=== PATIENT | male | born 1955 | race Caucasian/White ===

== ENCOUNTER 2019-09-02 11:55 | Inpatient (IN) | payer OTHER ==
[2019-09-02 12:47] LABS: #Eosinphils 0.2 thou/uL (0.0-0.7); #Lymphocytes 0.9 thou/uL (1.20-3.40); #Monocytes 0.6 thou/uL (0.11-0.59); #Neutrophils 3.6 thou/uL (1.40-6.50); %Basophils 0.3 % (0.0-1.0); %Eosinophils 3.1 % (0.0-10.0); %Lymphocytes 17.2 % (21.0-51.0); %Monocytes 11.1 % (0.0-10.0); %Neutrophils 68.4 % (42.0-75.0); Hemoglobin 13.2 g/dL (14.0-18.0); Mean Corpuscular HGB CONC 33.7 g/dL (32.0-36.0); Mean Corpuscular Hemoglobin 31.9 pg (27.0-31.0); Mean Corpuscular Volume 94.7 fL (78.0-98.0); Mean Platelet Volume 7.5 fL (7.4-10.4); Platelet Count 217 thou/uL (130-400); RBC Distribution Width 13.1 % (11.5-14.5); Red Blood Cell (RBC) Count 4.15 mill/uL (4.70-6.10); White Blood Cell (WBC) Count 5.3 thou/uL (4.8-10.8)
[2019-09-02] MEDS ORDERED: Albuterol 200 PUFF (6.7GM INHALER) ONE (12:59)
[2019-09-02] MEDS ORDERED: Magnesium 2 GM/50 ML BAG (IN WATER) ONE (13:01)
[2019-09-02] MEDS ORDERED: methylPREDNISolone Sod Succ/PF 125 MG/2 ML VIAL ONE (13:01)
[2019-09-02 13:26] LABS: ALT (SGPT) 17 U/L (8-55); AST (SGOT) 27 U/L (5-34); Albumin 3.6 g/dL (3.4-4.8); Alkaline Phosphatase 76 U/L (40-110); Anion Gap 11 mmol/L (10-20); BUN (Urea Nitrogen) 13 mg/dL (8.4-25.7); Bilirubin, Total 0.6 mg/dL (0.2-1.2); Calc. Creatinine Clearance 0 mL/min (70-130); Calcium 9.1 mg/dL (7.8-10.44); Carbon Dioxide 27 mmol/L (23-31); Chloride 99 mmol/L (98-107); Estimated GFR-MDRD Greater than 90; Globulin 3.6 g/dL (2.4-3.5); Glucose 193 mg/dL (80-115); Potassium 4.3 mmol/L (3.5-5.1); Protein, Total 7.2 g/dL (5.8-8.1); Sodium 133 mmol/L (136-145)
[2019-09-02 13:43] LABS: CKMB 5.6 ng/mL (0-6.6)
[2019-09-02] MEDS ORDERED: Nitroglycerin 2% Ointment 1 INCH/1 GM Packet ONE (13:47)
[2019-09-02] MEDS ORDERED: Aspirin Chewable 81 MG TAB ONE ×2 (13:47→13:50)
--- NOTE | 2019-09-02 14:25 | RAD ---
PORTABLE CHEST ONE VIEW: 09/02/19 at 12:20 p.m. HISTORY: Dyspnea. FINDINGS: Comparison is made with exam of 12/26/18. The heart size is normal. Chronic changes are again seen. T he lungs are well expanded without lobar consolidation, pneumothoraces or pleural effusions. Old left sided rib fractures are again seen. IMPRESSION: No acute process. POS: [facility]
[2019-09-02 17:10] LABS: Troponin I 0.181 ng/mL (< 0.028)
[2019-09-02] MEDS ORDERED: Senokot S 8.6-50 MG TAB PO PRN (19:22)
[2019-09-02] MEDS ORDERED: Ondansetron ODT 4 MG TAB PO PRN (19:22)
[2019-09-02] MEDS ORDERED: Acetaminophen 325 MG TAB PO PRN (19:22)
[2019-09-02] MEDS ORDERED: Nitroglycerin 0.4 MG TAB (25 Tab Bottle) PO PRN (19:22)
[2019-09-02] MEDS ORDERED: Ondansetron PF 4 MG/2 ML Vial IVP PRN (19:22)
[2019-09-02] MEDS ORDERED: Sodium Chloride 0.9% 1,000 ML IV SCH (19:30)
[2019-09-02 19:45] VITALS: BMI 21.2
[2019-09-02] MEDS ORDERED: Azithromycin 250 MG TAB PO SCH (19:45)
[2019-09-02] MEDS ORDERED: Albuterol Sulfate 2.5 mg/3 ml Neb EZPAP SCH ×2 (20:00)
[2019-09-02 20:08] LABS: Troponin I 0.145 ng/mL (< 0.028)
[2019-09-02] MEDS ORDERED: Albuterol 200 PUFF (6.7GM INHALER) INH PRN (20:59)
[2019-09-02] MEDS ORDERED: Metoprolol Tartrate 25 MG TAB PO SCH (21:00)
[2019-09-02] MEDS ORDERED: Albuterol 200 PUFF (6.7GM INHALER) INH SCH (21:30)
[2019-09-02] MEDS: Ipratropium Oral Inhaler INH SCH (21:31)
[2019-09-02] MEDS: Calcium Carbonate + Vit D 250 MG TAB PO SCH (21:34)
[2019-09-02] MEDS: Sodium Chloride 0.9% 1,000 ML IV SCH (21:35)
--- NOTE | 2019-09-02 22:33 | HP ---
HISTORY OF PRESENT ILLNESS: Mr. Hough is a 63-year-old male currently incarcerated with a medical history of COPD, type 2 diabetes, hyperlipidemia, and hypertension, who presented with shortness of breath. The patient endorsed having shortness of breath since the morning, worsened by exertion. He has had such shortness of breath for the past 20 years during episodes of COPD exacerbation, so presented to the ED. On encounter, lying comfortably in bed and has no complaints. Endorses feeling and breathing better since arriving at the ED. Denies fatigue, weight loss, chest pressure, jaw pain or shoulder pain, pleuritic pain, increased cough frequency, increased sputum production, syncope, presyncope, palpitations, abdominal pain, diarrhea, black stools, blood in the stool, dysuria, urinary frequency, sick contacts, and COVID positive [facility] ED COURSE: In the ED, the patient was found to be wheezing and oxygen saturation was in the high 80s. He was started on nasal cannula respiratory treatments and was given methylprednisolone once. He improved promptly and was admitted to the floor for further management. REVIEW OF SYSTEMS: Full review of system was carried out and was negative with the exception of that mentioned in the HPI. PAST MEDICAL HISTORY: Shows COPD, hypertension, and type 2 diabetes. PAST SURGICAL HISTORY: Left hip replacement and partial liver resection. SOCIAL HISTORY: Used to smoke tobacco. Used to drink alcohol, both heavy smoker and drinker in the past, quit about 10 to 15 years ago. Used to do recreational drugs, but never injected in so. FAMILY HISTORY: Significant for hypertension and diabetes. MEDICATIONS: Reconciled in EMR. ALLERGIES: NO KNOWN DRUG ALLERGIES. PHYSICAL EXAMINATION: VITAL SIGNS: Blood pressure 146/72, temperature 97, pulse 102, respiratory rate 18, and oxygen saturation 97% on room air. GENERAL APPEARANCE: Lying comfortably in bed, alert and cooperative. HEENT: No preauricular, postauricular, posterior or anterior neck or submandibular lymphadenopathy. Normocephalic and atraumatic. HEART: Regular rhythm, tachycardic. No rubs or murmurs. LUNGS: Diffuse expiratory wheezing, but good breath sounds. ABDOMEN: Nondistended, nontender. Normal bowel sounds. EXTREMITIES: No edema. PSYCHIATRIC: Proper mood and affect. Alert and oriented x3. DIAGNOSTIC STUDIES: Labs and imaging were reviewed. Of note, the patient was alkalotic. His hyponatremia most likely a component of contraction alkalosis. The patient had a troponin of 0.25 that went down to 0.15 with a normal CK-MB suggesting resolving cardiac ischemia and a BNP of 200. Imaging showed hyperinflated lungs with flattening of the diaphragm. ASSESSMENT AND PLAN: 1. Chronic obstructive pulmonary disease exacerbation: a. The patient presents with increased shortness of breath and wheezing on exam. b. Responded promptly to steroids, respiratory treatments, and supplemental oxygen. c. On reviewing inhalation technique, the patient exhibited suboptimal technique. PLAN 1. Start prednisone 40 mg p.o. daily; azithromycin 500 mg, then 250 mg p.o. daily. 2. Albuterol and ipratropium inhalation q.6 hours scheduled, tiotropium scheduled. 3. Dyspnea on exertion: a. Though the patient's dyspnea on exertion may be related to chronic obstructive pulmonary disease and suboptimal chronic obstructive pulmonary disease management and chronic obstructive pulmonary disease exacerbation, the patient does endorse 20 years of recurrent dyspnea on exertion. The patient also presented with troponinemia and normal CK-MB suggestive of resolving cardiac ischemia. b. Cardiac ischemia may have been due to demand ischemia in the context of hypoxemia. However, the patient has pretest coronary artery disease consortium score of intermediate risk for coronary artery disease. Therefore, we will obtain a stress test. 4. Type 2 diabetes. a. The patient is managed with low-dose insulin injections as well as metformin at home. b. We will start metformin and sliding scale. 5. Hypertension. a. Restart home regimen. 6. Disposition prophylaxis. a. The patient is full code. The patient has no surrogate decision maker. 7. Gastrointestinal prophylaxis, no indication. 8. Deep venous thrombosis prophylaxis, Lovenox subcutaneously. Job ID: [id number]
[2019-09-03 04:49] LABS: #Lymphocytes 0.7 thou/uL (1.20-3.40); #Monocytes 0.2 thou/uL (0.11-0.59); #Neutrophils 3.4 thou/uL (1.40-6.50); %Lymphocytes 16.2 % (21.0-51.0); %Monocytes 3.6 % (0.0-10.0); %Neutrophils 80.2 % (42.0-75.0); Hemoglobin 13.6 g/dL (14.0-18.0); Mean Corpuscular HGB CONC 33.5 g/dL (32.0-36.0); Mean Corpuscular Hemoglobin 31.6 pg (27.0-31.0); Mean Corpuscular Volume 94.3 fL (78.0-98.0); Mean Platelet Volume 7.2 fL (7.4-10.4); Platelet Count 269 thou/uL (130-400); RBC Distribution Width 13.1 % (11.5-14.5); Red Blood Cell (RBC) Count 4.29 mill/uL (4.70-6.10); White Blood Cell (WBC) Count 4.2 thou/uL (4.8-10.8)
[2019-09-03 05:13] LABS: Anion Gap 11 mmol/L (10-20); BUN (Urea Nitrogen) 17 mg/dL (8.4-25.7); Calc. Creatinine Clearance 76 mL/min (70-130); Carbon Dioxide 27 mmol/L (23-31); Chloride 101 mmol/L (98-107); Estimated GFR-MDRD Greater than 90; Glucose 231 mg/dL (80-115); Potassium 4.4 mmol/L (3.5-5.1); Sodium 135 mmol/L (136-145)
[2019-09-03] MEDS: Sodium Chloride 0.9% 1,000 ML IV SCH ×2 (07:52→16:36)
[2019-09-03] MEDS: Ipratropium Oral Inhaler INH SCH ×4 (07:52→21:57)
[2019-09-03] MEDS: Albuterol 200 PUFF (6.7GM INHALER) INH SCH ×4 (07:53→21:56)
[2019-09-03] MEDS: Azithromycin 250 MG TAB PO SCH (07:54)
[2019-09-03] MEDS: Atorvastatin Calcium 10 MG TAB PO SCH (07:54)
[2019-09-03] MEDS: predniSONE 20 MG TAB PO SCH (07:54)
[2019-09-03] MEDS: Enoxaparin Sodium 40 MG/0.4 ML SYRINGE SC SCH (07:54)
[2019-09-03] MEDS: metFORMIN 500 MG TAB PO SCH ×2 (07:54→16:37)
[2019-09-03] MEDS: Ferrous Sulfate 325 MG TAB PO SCH (07:54)
[2019-09-03] MEDS: Lisinopril 10 MG TAB PO SCH (07:55)
[2019-09-03] MEDS: Calcium Carbonate + Vit D 250 MG TAB PO SCH ×3 (07:55→20:08)
[2019-09-03] MEDS: Venlafaxine HCl XR 75 MG CAP PO SCH (07:58)
[2019-09-03] MEDS ORDERED: Enoxaparin Sodium 40 MG/0.4 ML SYRINGE SC SCH (09:00)
[2019-09-03] MEDS ORDERED: Aspirin 81 mg Enteric Coated Tablet PO SCH (09:00)
[2019-09-03] MEDS ORDERED: Non-Formulary Item 1 EACH (Tiotropium Bromide [Spiriva] 18 MCG) IH SCH (09:00)
[2019-09-03 13:18] LABS: SARS-CoV-2 MS2 Positive; SARS-CoV-2 N Gene Negative; SARS-CoV-2 S Gene Negative; SARS-CoV-2 orf1ab Negative
[2019-09-03] MEDS ORDERED: Dextrose 50% Abboject 50 ML SYRINGE SLOW IVP PRN (16:47)
[2019-09-03] MEDS ORDERED: Dextrose 5% in Water 1,000 ML IV PRN (16:47)
--- NOTE | 2019-09-03 17:00 | PDOC.HOSPP ---
- Subjective Encounter Date: 09/03/19 Encounter Time: 16:00 Subjective: Pt seen for followup re:COPD exacerbation. Feels better. - Objective Vital Signs & Weight: Vital Signs (12 hours) Temp Pulse Resp BP Pulse Ox 09/03/19 16:41 98 F 95 18 152/79 H 98 09/03/19 12:26 98.4 F 97 16 153/73 H 99 09/03/19 08:08 98.2 F 92 16 146/70 H 98 Weight Weight 128 lb I&O: 09/02/19 09/03/19 09/04/19 06:59 06:59 06:59 Intake Total 1169 1297 Output Total 2 Balance 1167 1297 Result Diagrams: 09/03/19 04:37 09/03/19 04:37 Additional Labs: Accuchecks 09/03/19 09/02/19 12:30 21:47 POC Glucose 139 H 144 H Labs and MARs reviewed by me EKG Reviewed by me: Yes (Tele: NSR) Hospitalist ROS - Review of Systems Respiratory: reports: SOB with excertion. denies: cough, dry, shortness of breath, hemoptysis, pleuritic pain, sputum, wheezing Cardiovascular: denies: chest pain, palpitations, orthopnea, paroxysmal noc. dyspnea, edema, light headedness - Medication Medications: Active Medications Generic Name Dose Route Start Last Admin Trade Name Freq PRN Reason Stop Dose Admin Albuterol Sulfate 2 puff 09/03/19 09:00 09/03/19 14:36 Proventil Hfa INH 2 puff QID BIB[facility]NA Administration Atorvastatin Calcium 10 mg 09/03/19 09:00 09/03/19 07:54 Lipitor PO 10 mg DAILY BIB[facility]NA Administration Azithromycin 250 mg 09/03/19 09:00 09/03/19 07:54 Zithromax PO 09/06/19 09:01 250 mg DAILY [facility]NA Administration Calcium/Vitamin D 250 mg 09/02/19 21:00 09/03/19 14:35 Oscal + Vit D PO 250 mg TID BIBIANA Administration Enoxaparin Sodium 40 mg 09/03/19 09:00 09/03/19 07:54 Lovenox SC 40 mg 0900 BIB[facility]NA Administration Ferrous Sulfate 325 mg 09/03/19 09:00 09/03/19 07:54 Feosol PO 325 mg DAILY BIB[facility]NA Administration Sodium Chloride 1,000 mls @ 100 mls/hr 09/02/19 19:45 09/03/19 16:36 Normal Saline 0.9% IV 1,000 mls .Q10H B[facility]NA Administration Ipratropium [place] 1 puff 09/02/19 21:00 09/03/19 14:36 Atrovent Hfa INH 1 puff QID [facility]IB[facility]NA Administration Lisinopril 10 mg 09/03/19 09:00 09/03/19 07:55 Zestril PO 10 mg DAILY B[facility]NA Administration Metformin HCl 1,000 mg 09/03/19 08:00 09/03/19 16:37 Glucophage PO 1,000 mg BID-WM BIB[place]NA Administration Pantoprazole Sodium 40 mg 09/03/19 09:00 09/03/19 07:55 Protonix PO 40 mg DAILY BIB[facility]NA Administration Prednisone 40 mg 09/03/19 09:00 09/03/19 07:54 Prednisone PO 40 mg DAILY BIB[facility]NA Administration Sodium Chloride 10 ml 09/02/19 21:00 09/03/19 07:55 Flush - Normal Saline IVF 10 ml Q12HR [facility]IB[facility]NA Administration Venlafaxine HCl 75 mg 09/03/19 09:00 09/03/19 07:58 Effexor Xr PO 75 mg DAILY BIB[facility]NA Administration - Exam General Appearance: awake alert Eye: anicteric sclera ENT: moist mucosa Neck: supple Heart: RRR Respiratory: CTAB, no wheezes Gastrointestinal: soft, non-tender Extremities: no edema Psychiatric: normal affect, normal behavior Hosp A/P (1) COPD exacerbation Code(s): J44.1 - CHRONIC OBSTRUCTIVE PULMONARY DISEASE W (ACUTE) EXACERBATION Status: Acute (2) Elevated troponin Code(s): R79.89 - OTHER SPECIFIED ABNORMAL FINDINGS OF BLOOD CHEMISTRY Status : Acute (3) DM2 (diabetes mellitus, type 2) Status: Chronic (4) HTN (hypertension) Code(s): I10 - ESSENTIAL (PRIMARY) HYPERTENSION Status: Chronic - Plan COVID 19 ruled out. Pt clinically improved with oxygen steroids and bronchodilators. Await stress test. Start insulin sliding scale. Monitor vital signs and titrate antihypertensives as needed.
[2019-09-03] MEDS: HumaLOG 300 UNITS/3 ML VIAL SC PRN (17:01)
[2019-09-04] MEDS: Sodium Chloride 0.9% 1,000 ML IV SCH ×3 (03:19→17:37)
[2019-09-04] MEDS: Albuterol 200 PUFF (6.7GM INHALER) INH SCH ×4 (06:52→17:44)
[2019-09-04] MEDS: Ipratropium Oral Inhaler INH SCH ×4 (06:53→17:45)
[2019-09-04] MEDS ORDERED: Regadenoson 0.4 MG/5 ML SYRINGE ONE (09:57)
[2019-09-04] MEDS: Azithromycin 250 MG TAB PO SCH (12:14)
[2019-09-04] MEDS: Calcium Carbonate + Vit D 250 MG TAB PO SCH ×3 (12:14→20:21)
[2019-09-04] MEDS: Ferrous Sulfate 325 MG TAB PO SCH (12:14)
[2019-09-04] MEDS: Venlafaxine HCl XR 75 MG CAP PO SCH (12:15)
[2019-09-04] MEDS: Atorvastatin Calcium 10 MG TAB PO SCH (12:15)
[2019-09-04] MEDS: Lisinopril 10 MG TAB PO SCH (12:15)
[2019-09-04] MEDS: Enoxaparin Sodium 40 MG/0.4 ML SYRINGE SC SCH (12:15)
[2019-09-04] MEDS: metFORMIN 500 MG TAB PO SCH ×2 (12:15→17:36)
[2019-09-04] MEDS: predniSONE 20 MG TAB PO SCH (12:15)
--- NOTE | 2019-09-04 13:41 | NM ---
NUCLEAR MEDICINE MYOCARDIAL PERFUSION EXAM: Date: 09-04-2019 History: Dyspnea on exertion. Intermittent pre-test plausibility. CAD. Technique: SPECT imaging of the left ventricular myocardium obtained during rest and stress following the intravenous administration of 27.1 and 9.0 mCi Technetium 99M Sestamibi. FINDINGS: There is a fixed defect involving the septum and anterior wall suggesting extensive prior infarction. These areas of prior infarction are hypokinetic on motion assessment. There is a probable small reversible defect in the region of the inferior wall as well. TID: 1.02 Left ventricular ejection fraction: 41% EDV: 64 mL ESV: 38 mL IMPRESSION: There is extensive prior infarction involving the anterior wall and septum. There is a probable small reversible defect at the inferior wall. POS: [facility]
--- NOTE | 2019-09-04 16:54 | PDOC.HOSPP ---
- Subjective Encounter Date: 09/04/19 Encounter Time: 16:52 Subjective: Pt seen for followup re: abnormal stress test. Reports dyspnea is better. Denies chest pain. - Objective Vital Signs & Weight: Vital Signs (12 hours) Temp Pulse Resp BP Pulse Ox 09/04/19 16:25 97.9 F 99 18 152/77 H 98 09/04/19 11:53 96.8 F L 100 17 140/69 100 09/04/19 08:25 97.3 F L 100 18 135/80 95 Weight Weight 128 lb I&O: 09/03/19 09/04/19 09/05/19 06:59 06:59 06:59 Intake Total 1169 2857 Output Total 2 Balance 1167 2857 Result Diagrams: 09/03/19 04:37 09/03/19 04:37 Additional Labs: Accuchecks 09/04/19 09/04/19 09/03/19 12:41 05:41 20:14 POC Glucose 145 H 118 H 100 09/03/19 16:44 POC Glucose 276 H labs and MARs reviewed by me EKG Reviewed by me: Yes (Tele: NSR) Hospitalist ROS - Review of Systems Cardiovascular: denies: chest pain, palpitations, orthopnea, paroxysmal noc. dyspnea, edema, light headedness Gastrointestinal: denies: nausea, vomiting, abdominal pain, diarrhea, constipation, melena, hematochezia - Medication Medications: Active Medications Generic Name Dose Route Start Last Admin Trade Name Freq PRN Reason Stop Dose Admin Albuterol Sulfate 2 puff 09/03/19 09:00 09/04/19 15:36 Proventil Hfa INH 2 puff QID [facility] Administration Atorvastatin Calcium 10 mg 09/03/19 09:00 09/04/19 12:15 Lipitor PO 10 mg DAILY [facility] Administration Azithromycin 250 mg 09/03/19 09:00 09/04/19 12:14 Zithromax PO 09/06/19 09:01 250 mg DAILY [facility] Administration Calcium/Vitamin D 250 mg 09/02/19 21:00 09/04/19 12:14 Oscal + Vit D PO 250 mg TID [facility] Administration Enoxaparin Sodium 40 mg 09/03/19 09:00 09/04/19 12:15 Lovenox SC 40 mg 0900 [facility] Administration Ferrous Sulfate 325 mg 09/03/19 09:00 09/04/19 12:14 Feosol PO 325 mg DAILY [facility] Administration Sodium Chloride 1,000 mls @ 100 mls/hr 09/02/19 19:45 09/04/19 11:45 Normal Saline 0.9% IV Not Given .Q10H [facility] Insulin Human Lispro 0 units 09/03/19 16:47 09/03/19 17:01 Humalog SC 4 units .MILD SLIDING SCALE PRN Administration Mild Correctional Scale Ipratropium [place] 1 puff 09/02/19 21:00 09/04/19 15:37 Atrovent Hfa INH 1 puff QID [facility] Administration Lisinopril 10 mg 09/03/19 09:00 09/04/19 12:15 Zestril PO 10 mg DAILY [facility] Administration Metformin HCl 1,000 mg 09/03/19 08:00 09/04/19 12:15 Glucophage PO 1,000 mg BID-WM [facility] Administration Pantoprazole Sodium 40 mg 09/03/19 09:00 09/04/19 12:14 Protonix PO 40 mg DAILY [facility] Administration Prednisone 40 mg 09/03/19 09:00 09/04/19 12:15 Prednisone PO 40 mg DAILY [facility] Administration Sodium Chloride 10 ml 09/02/19 21:00 09/04/19 12:57 Flush - Normal Saline IVF Not Given Q12HR [facility] Venlafaxine HCl 75 mg 09/03/19 09:00 09/04/19 12:15 Effexor Xr PO 75 mg DAILY [facility] Administration - Exam General Appearance: awake alert Eye: anicteric sclera ENT: moist mucosa Neck: supple Heart: RRR Respiratory: CTAB Gastrointestinal: soft, non-tender Extremities: no cyanosis Psychiatric: normal affect, normal behavior Hosp A/P (1) Abnormal stress test Status: Acute (2) COPD exacerbation Code(s): J44.1 - CHRONIC OBSTRUCTIVE PULMONARY DISEASE W (ACUTE) EXACERBATION Status: Acute (3) Elevated troponin Code(s): R79.89 - OTHER SPECIFIED ABNORMAL FINDINGS OF BLOOD CHEMISTRY Status : Acute (4) DM2 (diabetes mellitus, type 2) Status: Chronic (5) HTN (hypertension) Code(s): I10 - ESSENTIAL (PRIMARY) HYPERTENSION Status: Chronic - Plan Await cardiology input for SVT and abnormal stress test. COVID 19 ruled out. COPD exacerbation: clinically improved with oxygen steroids and bronchodilators. Continue insulin sliding scale. continue lisinopril. Discussed with [facility] re: patient transfer. If pt needs cath etc. which could prolong his hospitalization, they will take him at [facility] (have to initiate through our transfer center). Otherwise, pt will most likely return to [facility] if continues to be clinically stable.
--- NOTE | 2019-09-04 17:47 | CON ---
DATE OF CONSULTATION: 09/04/2019 REASON FOR CONSULTATION: Shortness of breath. HISTORY OF PRESENT ILLNESS: Mr. Hough is a pleasant 63-year-old white gentleman, who comes to the hospital for shortness of breath. He is currently an inmate and has a history of COPD with ongoing tobacco use about a pack and a half a day. He states he quit about 6 months ago. He came in short of breath, which he has had several times in the past. He is also having some hallucinations from bipolar disorder. He requested to be evaluated for his heart as he feels this may be an issue. His shortness of breath has always been talked up to COPD. On my evaluation, Mr. Hough denies any chest pain or tightness, only admits to his chronic shortness of breath, which is sometimes worse. PAST MEDICAL HISTORY: 1. COPD. 2. Hypertension. 3. Type 2 diabetes. PAST SURGICAL HISTORY: 1. Left hip replacement. 2. Partial liver resection. SOCIAL HISTORY: 1-1/2 pack a day smoker for many years now, quit about 6 months ago, but looking at his chart, he told the admitting physician it was about 10 to 15 years ago. Use of recreational drugs in the past. No alcohol recently since incarcerated, but former alcohol use. FAMILY HISTORY: Hypertension and diabetes. No early coronary artery disease. OUTPATIENT MEDICATIONS: 1. Albuterol inhaler. 2. Metformin 1000 mg b.i.d. 3. Venlafaxine. 4. Spiriva. 5. Osmolite. 6. Omeprazole 20 mg a day. 7. Lipitor 10 mg a day. 8. Novolin N. 9. Lisinopril 10 mg a day. 10. Ibuprofen p.r.n. 11. Ferrous sulfate. 12. Dulera inhaler. 13. Calcium and vitamin D. ALLERGIES: NO KNOWN DRUG ALLERGIES. REVIEW OF SYSTEMS: A 12-point review of systems was done and was all negative unless stated in the history of present illness. PHYSICAL EXAMINATION: VITAL SIGNS: Temperature 97.9, pulse 99, respiratory rate 18, sat 98% on room air, and blood pressure 150/77. GENERAL: Awake, alert, and oriented x3. No distress. HEENT: Normocephalic and atraumatic. NECK: Supple. LUNGS: Reduced breath sounds. Expiratory wheezes. CARDIOVASCULAR: S1 and S2. No S3 or S4. There is a grade 3/6 holosystolic murmur at the right sternal border. ABDOMEN: Soft with positive bowel sounds. EXTREMITIES: No edema. SKIN: Warm and dry. LABORATORY DATA: Laboratory work was reviewed. White count of 5, hemoglobin 13, hematocrit 39, and platelet count of 217. Chemistries showed sodium 133. Everything was unremarkable except for a glucose of 193. LFTs were normal. Troponin was 0.25, 0.18, and 0.14 and a BNP of 199. Albumin of 3.6. COVID PCR was not detected. Chest x-ray was reviewed. No acute process. Nuclear stress test performed earlier today showed large area of scar on the anterior wall with an EF of 41%. A very small reversible ischemia on the inferior wall. ASSESSMENT/PLAN: 1. Shortness of breath. 2. Chronic obstructive pulmonary disease. 3. New onset cardiomyopathy per stress results. 4. Possible coronary artery disease. 5. Most likely ischemic cardiomyopathy. 6. Former tobacco user. PLAN: 1. I spoke with Mr. Hough about further risk stratification with a heart catheterization as the information we have right now would suggest that he has had a previous MT on the anterior wall with reduced EF. At this point, Mr. Hough is not interested in any invasive interventions. He would like to take medications only. He states that his mind is all over the place and he would like to get his mind strain up before deciding on any procedure. I think this is reasonable. We will start medications. We will make sure that he is on aspirin and statin, which is already on, beta-matty, and GUSTAVO inhibitor. We will get an echocardiogram to assess LV function, valvular structures. 2. Continue medical therapy for now. Thank you for letting us participate in the care of your patient. We will follow. Job ID: [id number]
[2019-09-04] MEDS ORDERED: Carvedilol 3.125 MG TAB PO SCH (18:15)
[2019-09-05] MEDS: Sodium Chloride 0.9% 1,000 ML IV SCH ×2 (03:55→19:02)
[2019-09-05 04:00] LABS: #Monocytes 0.3 thou/uL (0.11-0.59); #Neutrophils 2.7 thou/uL (1.40-6.50); %Basophils 0.3 % (0.0-1.0); %Eosinophils 0.3 % (0.0-10.0); %Lymphocytes 24.6 % (21.0-51.0); %Monocytes 7.8 % (0.0-10.0); %Neutrophils 66.9 % (42.0-75.0); Hemoglobin 11.9 g/dL (14.0-18.0); Mean Corpuscular HGB CONC 31.9 g/dL (32.0-36.0); Mean Corpuscular Hemoglobin 31.6 pg (27.0-31.0); Mean Corpuscular Volume 99.1 fL (78.0-98.0); Mean Platelet Volume 7.5 fL (7.4-10.4); Platelet Count 226 thou/uL (130-400); RBC Distribution Width 13.4 % (11.5-14.5); Red Blood Cell (RBC) Count 3.77 mill/uL (4.70-6.10)
[2019-09-05 04:13] LABS: Anion Gap 12 mmol/L (10-20); Calcium 8.2 mg/dL (7.8-10.44); Carbon Dioxide 21 mmol/L (23-31); Chloride 106 mmol/L (98-107); Sodium 135 mmol/L (136-145)
[2019-09-05 04:28] LABS: BUN (Urea Nitrogen) 16 mg/dL (8.4-25.7); Calc. Creatinine Clearance 82 mL/min (70-130); Estimated GFR-MDRD Greater than 90; Glucose 117 mg/dL (80-115)
[2019-09-05] MEDS: Albuterol 200 PUFF (6.7GM INHALER) INH SCH ×4 (07:09→18:58)
[2019-09-05] MEDS: Ipratropium Oral Inhaler INH SCH ×4 (07:12→18:58)
[2019-09-05] MEDS ORDERED: Carvedilol 3.125 MG TAB PO SCH ×3 (08:00→17:00)
[2019-09-05] MEDS: Atorvastatin Calcium 10 MG TAB PO SCH (08:55)
[2019-09-05] MEDS: Venlafaxine HCl XR 75 MG CAP PO SCH (08:56)
[2019-09-05] MEDS: Calcium Carbonate + Vit D 250 MG TAB PO SCH ×3 (08:56→21:00)
[2019-09-05] MEDS: Lisinopril 10 MG TAB PO SCH (08:56)
[2019-09-05] MEDS: predniSONE 20 MG TAB PO SCH (08:56)
[2019-09-05] MEDS: Enoxaparin Sodium 40 MG/0.4 ML SYRINGE SC SCH (08:56)
[2019-09-05] MEDS: Ferrous Sulfate 325 MG TAB PO SCH (08:56)
[2019-09-05] MEDS: metFORMIN 500 MG TAB PO SCH ×2 (08:56→16:58)
[2019-09-05] MEDS: Azithromycin 250 MG TAB PO SCH (08:56)
[2019-09-05] MEDS ORDERED: Aspirin 81 mg Enteric Coated Tablet PO SCH (09:30)
--- NOTE | 2019-09-05 13:40 | PDOC.CPN ---
- Subjective Date: 09/05/19 Time: 13:38 Interval history: No new issues. SOB at baseline. No chest pain. - Review of Systems General: denies: fever/chills, weight/appetite/sleep changes, night sweats, fatigue Respiratory: reports: shortness of breath. denies: cough, congestion, exercise intolerance Cardiovascular: denies: chest pain, palpitation, edema, paroxysmal nocturnal dyspnea, orthopnea Gastrointestinal: denies: nausea, vomiting, diarrhea, constipation, abd pain, GI bleeding Musculoskeletal: denies: pain, tenderness, stiffness, swelling, arthritis/ arthralgias Neurological: denies: numbness, syncope, seizure, weakness - Objective Allergies/Adverse Reactions: Allergies Allergy/AdvReac Type Severity Reaction Status Date / Time No Known Drug Allergies Allergy Verified 09/02/19 19:46 Visit Medications: Current Medications Acetaminophen (Tylenol) 650 mg PO Q4H PRN PRN Reason: Headache/Fever/Mild Pain (1-3) Albuterol Sulfate (Proventil Hfa) 1 puff INH Q8H PRN PRN Reason: SOB &/or Wheezing Albuterol Sulfate (Proventil Hfa) 2 puff INH QID [facility] Last Admin: 09/05/19 13:05 Dose: 2 puff Aspirin (Ecotrin) 81 mg PO DAILY [facility] Atorvastatin Calcium (Lipitor) 10 mg PO DAILY [facility] Last Admin: 09/05/19 08:55 Dose: 10 mg Azithromycin (Zithromax) 250 mg PO DAILY [facility] Stop: 09/06/19 09:01 Last Admin: 09/05/19 08:56 Dose: 250 mg Calcium/Vitamin D (Oscal + Vit D) 250 mg PO TID [facility] Last Admin: 09/05/19 08:56 Dose: 250 mg Carvedilol (Coreg) 3.125 mg PO BID-[facility] Dextrose/Water (Dextrose 50%) 25 gm SLOW IVP PRN PRN PRN Reason: Hypoglycemia Enoxaparin Sodium (Lovenox) 40 mg SC 0900 [facility] Last Admin: 09/05/19 08:56 Dose: 40 mg Ferrous Sulfate (Feosol) 325 mg PO DAILY [facility] Last Admin: 09/05/19 08:56 Dose: 325 mg Glucagon (Glucagon) 1 mg IM PRN PRN PRN Reason: Hypoglycemia Sodium Chloride (Normal Saline 0.9%) 1,000 mls @ 100 mls/hr IV .Q10H [facility] Last Admin: 09/05/19 03:55 Dose: 1,000 mls Dextrose/Water (D5w) 1,000 mls @ 0 mls/hr IV .Q0M PRN PRN Reason: Hypoglycemia Insulin Human Lispro (Humalog) 0 units SC .MILD SLIDING SCALE PRN PRN Reason: Mild Correctional Scale Last Admin: 09/03/19 17:01 Dose: 4 units Ipratropium [place] (Atrovent Hfa) 1 puff INH QID [facility] Last Admin: 09/05/19 13:05 Dose: 1 puff Lisinopril (Zestril) 10 mg PO DAILY [facility] Last Admin: 09/05/19 08:56 Dose: 10 mg Metformin HCl (Glucophage) 1,000 mg PO BID-[facility] Last Admin: 09/05/19 08:56 Dose: 1,000 mg Ondansetron HCl (Zofran Odt) 4 mg PO Q6H PRN PRN Reason: Nausea/Vomiting Ondansetron HCl (Zofran) 4 mg IVP Q6H PRN PRN Reason: Nausea/Vomiting Pantoprazole Sodium (Protonix) 40 mg PO DAILY [facility] Last Admin: 09/05/19 08:56 Dose: 40 mg Prednisone (Prednisone) 40 mg PO DAILY [facility] Last Admin: 09/05/19 08:56 Dose: 40 mg Senna/Docusate Sodium (Senokot S) 2 tab PO BID PRN PRN Reason: Constipation Sodium Chloride (Flush - Normal Saline) 10 ml IVF Q12HR [facility] Last Admin: 09/05/19 08:57 Dose: Not Given Sodium Chloride (Flush - Normal Saline) 10 ml IVF PRN PRN PRN Reason: Saline Flush Venlafaxine HCl (Effexor Xr) 75 mg PO DAILY [facility] Last Admin: 09/05/19 08:56 Dose: 75 mg Vital Signs & Weight: Vital Signs Temp Pulse Pulse Pulse Resp BP BP 09/05/19 13:05 113 H 16 09/05/19 11:34 98.5 F 94 20 09/05/19 09:11 115 H 116 H 179/93 H 175/97 H 09/05/19 07:32 97.7 F 90 18 09/05/19 07:12 113 H 16 09/05/19 03:37 98.0 F 89 18 BP Pulse Ox 09/05/19 13:05 97 09/05/19 11:34 148/85 H 96 09/05/19 09:11 09/05/19 07:32 162/81 H 98 09/05/19 07:12 95 09/05/19 03:37 156/84 H 96 Weight 125 lb 4.8 oz - Physical Exam General: alert & oriented x3 HEENT: mucus membranes moist Neck: supple neck Cardiac: regular rate and rhythm Lungs: decreased breath sounds Neuro: grossly intact Abdomen: active bowel sounds Extremities: no edema Skin: clear Musculoskeletal: no pain - Labs Result Diagrams: 09/05/19 03:38 09/05/19 03:38 Troponin/CKMB CK-MB (CK-2) 5.6 ng/mL (0-6.6) 09/02/19 12:10 Troponin I 0.145 ng/mL (< 0.028) H 09/02/19 19:34 - Telemetry Sinus rhythms and dysrhythmias: sinus rhythm - Assessment/Plan Assessment/Plan: 1. New onset Cardiomyopathy 2. Likely ischemic CM 3. EF at 40-45% 4. COPD PLAN: - He grier snot want to have a C. - He still wants medical therapy only. - Echo to be done. - Will up titrate BB and ACEI for better BPO control - May discharge after echo done. - Will need follow up with [facility] to consider Entresto.
[2019-09-05] MEDS: Carvedilol 6.25 MG TAB PO SCH (16:58)
--- NOTE | 2019-09-05 17:34 | PDOC.HOSPP ---
- Subjective Encounter Date: 09/05/19 Encounter Time: 17:32 Subjective: Pt seen for followup re: cardiomyopathy. Denies chest pain or shortness of breath. - Objective Vital Signs & Weight: Vital Signs (12 hours) Temp Pulse Pulse Pulse Resp BP BP 09/05/19 15:45 98.9 F 99 20 09/05/19 15:20 113 H 20 09/05/19 13:05 113 H 16 09/05/19 11:34 98.5 F 94 20 09/05/19 09:11 115 H 116 H 179/93 H 175/97 H 09/05/19 07:32 97.7 F 90 18 09/05/19 07:12 113 H 16 BP Pulse Ox 09/05/19 15:45 145/81 H 98 09/05/19 15:20 98 09/05/19 13:05 97 09/05/19 11:34 148/85 H 96 09/05/19 09:11 09/05/19 07:32 162/81 H 98 09/05/19 07:12 95 Weight Weight 125 lb 4.8 oz I&O: 09/04/19 09/05/19 09/06/19 06:59 06:59 06:59 Intake Total 2857 4440 Balance 2857 4440 Result Diagrams: 09/05/19 03:38 09/05/19 03:38 Additional Labs: Accuchecks 09/05/19 09/05/19 09/04/19 10:55 05:10 20:20 POC Glucose 121 H 114 H 138 H 09/04/19 17:20 POC Glucose 139 H Labs and MARs reviewed by me EKG Reviewed by me: Yes (Tele: NSR) Hospitalist ROS - Review of Systems Cardiovascular: denies: chest pain, palpitations, orthopnea, paroxysmal noc. dyspnea, edema, light headedness Gastrointestinal: denies: nausea, vomiting, abdominal pain, diarrhea, constipation, melena, hematochezia - Medication Medications: Active Medications Generic Name Dose Route Start Last Admin Trade Name Freq PRN Reason Stop Dose Admin Albuterol Sulfate 2 puff 09/03/19 09:00 09/05/19 15:20 Proventil Hfa INH 2 puff QID [facility] Administration Atorvastatin Calcium 10 mg 09/03/19 09:00 09/05/19 08:55 Lipitor PO 10 mg DAILY [facility] Administration Azithromycin 250 mg 06/27/20 09:00 09/05/19 08:56 Zithromax PO 09/06/19 09:01 250 mg DAILY [facility] Administration Calcium/Vitamin D 250 mg 09/02/19 21:00 09/05/19 16:58 Oscal + Vit D PO 250 mg TID [facility] Administration Carvedilol 6.25 mg 09/05/19 17:00 09/05/19 16:58 Coreg PO 6.25 mg BID-WM [facility] Administration Enoxaparin Sodium 40 mg 09/03/19 09:00 09/05/19 08:56 Lovenox SC 40 mg 0900 [facility] Administration Ferrous Sulfate 325 mg 09/03/19 09:00 09/05/19 08:56 Feosol PO 325 mg DAILY [facility] Administration Sodium Chloride 1,000 mls @ 100 mls/hr 09/02/19 19:45 09/05/19 03:55 Normal Saline 0.9% IV 1,000 mls .Q10H [facility] Administration Insulin Human Lispro 0 units 09/03/19 16:47 09/03/19 17:01 Humalog SC 4 units .MILD SLIDING SCALE PRN Administration Mild Correctional Scale Ipratropium [place] 1 puff 09/02/19 21:00 09/05/19 15:20 Atrovent Hfa INH 1 puff QID [facility] Administration Metformin HCl 1,000 mg 09/03/19 08:00 09/05/19 16:58 Glucophage PO 1,000 mg BID-WM [facility] Administration Pantoprazole Sodium 40 mg 09/03/19 09:00 09/05/19 08:56 Protonix PO 40 mg DAILY [facility] Administration Prednisone 40 mg 09/03/19 09:00 09/05/19 08:56 Prednisone PO 40 mg DAILY [facility] Administration Sodium Chloride 10 ml 09/02/19 21:00 09/05/19 08:57 Flush - Normal Saline IVF Not Given Q12HR [facility] Venlafaxine HCl 75 mg 09/03/19 09:00 09/05/19 08:56 Effexor Xr PO 75 mg DAILY [facility] Administration - Exam General Appearance: awake alert Eye: anicteric sclera ENT: normocephalic atraumatic, moist mucosa Neck: no thyromegaly, no lymphadenopathy Heart: RRR Respiratory: CTAB, no rales Gastrointestinal: soft, non-tender Skin: no rashes Psychiatric: normal affect, normal behavior Hosp A/P (1) Cardiomyopathy Code(s): I42.9 - CARDIOMYOPATHY, UNSPECIFIED Status: Acute (2) Abnormal stress test Status: Acute (3) COPD exacerbation Code(s): J44.1 - CHRONIC OBSTRUCTIVE PULMONARY DISEASE W (ACUTE) EXACERBATION Status: Acute (4) Elevated troponin Code(s): R79.89 - OTHER SPECIFIED ABNORMAL FINDINGS OF BLOOD CHEMISTRY Status : Acute (5) DM2 (diabetes mellitus, type 2) Status: Chronic (6) HTN (hypertension) Code(s): I10 - ESSENTIAL (PRIMARY) HYPERTENSION Status: Chronic - Plan Pt did not want any intervention re: abnormal stress test. I discussed with pt re: cardiomyopathy. Discussed risks vs benefits on LifeVest. Pt wants a LifeVest. Will have to arrange it through [facility]. COVID 19 ruled out. COPD exacerbation: clinically improved with oxygen steroids and bronchodilators. Continue insulin sliding scale. Lisinopril and Coreg doses increased.
[2019-09-05] MEDS: HumaLOG 300 UNITS/3 ML VIAL SC PRN (18:21)
[2019-09-06] MEDS: Albuterol 200 PUFF (6.7GM INHALER) INH SCH ×4 (07:16→20:20)
[2019-09-06] MEDS: Ipratropium Oral Inhaler INH SCH ×4 (07:17→20:20)
[2019-09-06] MEDS: predniSONE 20 MG TAB PO SCH (08:18)
[2019-09-06] MEDS: metFORMIN 500 MG TAB PO SCH ×2 (08:19→16:31)
[2019-09-06] MEDS: Atorvastatin Calcium 10 MG TAB PO SCH (08:19)
[2019-09-06] MEDS: Aspirin 81 mg Enteric Coated Tablet PO SCH (08:20)
[2019-09-06] MEDS: Ferrous Sulfate 325 MG TAB PO SCH (08:20)
[2019-09-06] MEDS: Calcium Carbonate + Vit D 250 MG TAB PO SCH ×3 (08:20→20:25)
[2019-09-06] MEDS: Azithromycin 250 MG TAB PO SCH (08:20)
[2019-09-06] MEDS: Lisinopril 20 MG TAB PO SCH (08:20)
[2019-09-06] MEDS: Carvedilol 6.25 MG TAB PO SCH ×2 (08:21→16:31)
[2019-09-06] MEDS: Venlafaxine HCl XR 75 MG CAP PO SCH (08:21)
[2019-09-06] MEDS: Enoxaparin Sodium 40 MG/0.4 ML SYRINGE SC SCH (08:21)
--- NOTE | 2019-09-06 16:25 | PDOC.CPN ---
- Subjective Date: 09/06/19 Time: 16:24 Interval history: No new issues. No angina, SOB at baseline. - Review of Systems General: denies: fever/chills, weight/appetite/sleep changes, night sweats, fatigue Respiratory: reports: shortness of breath, exercise intolerance. denies: cough , congestion Cardiovascular: denies: chest pain, palpitation, edema, paroxysmal nocturnal dyspnea, orthopnea Gastrointestinal: denies: nausea, vomiting, diarrhea, constipation, abd pain, GI bleeding Musculoskeletal: denies: pain, tenderness, stiffness, swelling, arthritis/ arthralgias Neurological: denies: numbness, syncope, seizure, weakness - Objective Allergies/Adverse Reactions: Allergies Allergy/AdvReac Type Severity Reaction Status Date / Time No Known Drug Allergies Allergy Verified 09/02/19 19:46 Visit Medications: Current Medications Acetaminophen (Tylenol) 650 mg PO Q4H PRN PRN Reason: Headache/Fever/Mild Pain (1-3) Albuterol Sulfate (Proventil Hfa) 1 puff INH Q8H PRN PRN Reason: SOB &/or Wheezing Albuterol Sulfate (Proventil Hfa) 2 puff INH QID [facility] Last Admin: 09/06/19 15:06 Dose: 2 puff Aspirin (Ecotrin) 81 mg PO DAILY [facility] Last Admin: 09/06/19 08:20 Dose: 81 mg Atorvastatin Calcium (Lipitor) 10 mg PO DAILY [facility] Last Admin: 09/06/19 08:19 Dose: 10 mg Calcium/Vitamin D (Oscal + Vit D) 250 mg PO TID [facility] Last Admin: 09/06/19 08:20 Dose: 250 mg Carvedilol (Coreg) 6.25 mg PO BID-[facility] Last Admin: 09/06/19 08:21 Dose: 6.25 mg Dextrose/Water (Dextrose 50%) 25 gm SLOW IVP PRN PRN PRN Reason: Hypoglycemia Enoxaparin Sodium (Lovenox) 40 mg SC 0900 [facility] Last Admin: 09/06/19 08:21 Dose: 40 mg Ferrous Sulfate (Feosol) 325 mg PO DAILY [facility] Last Admin: 09/06/19 08:20 Dose: 325 mg Glucagon (Glucagon) 1 mg IM PRN PRN PRN Reason: Hypoglycemia Dextrose/Water (D5w) 1,000 mls @ 0 mls/hr IV .Q0M PRN PRN Reason: Hypoglycemia Insulin Human Lispro (Humalog) 0 units SC .MILD SLIDING SCALE PRN PRN Reason: Mild Correctional Scale Last Admin: 09/05/19 18:21 Dose: 2 units Ipratropium [place] (Atrovent Hfa) 1 puff INH QID [facility] Last Admin: 09/06/19 15:06 Dose: 1 puff Lisinopril (Zestril) 20 mg PO DAILY [facility] Last Admin: 09/06/19 08:20 Dose: 20 mg Metformin HCl (Glucophage) 1,000 mg PO BID-[facility] Last Admin: 09/06/19 08:19 Dose: 1,000 mg Ondansetron HCl (Zofran Odt) 4 mg PO Q6H PRN PRN Reason: Nausea/Vomiting Ondansetron HCl (Zofran) 4 mg IVP Q6H PRN PRN Reason: Nausea/Vomiting Pantoprazole Sodium (Protonix) 40 mg PO DAILY [facility] Last Admin: 09/06/19 08:20 Dose: 40 mg Prednisone (Prednisone) 40 mg PO DAILY [facility] Last Admin: 09/06/19 08:18 Dose: 40 mg Senna/Docusate Sodium (Senokot S) 2 tab PO BID PRN PRN Reason: Constipation Sodium Chloride (Flush - Normal Saline) 10 ml IVF Q12HR [facility] Last Admin: 09/06/19 08:21 Dose: 10 ml Sodium Chloride (Flush - Normal Saline) 10 ml IVF PRN PRN PRN Reason: Saline Flush Venlafaxine HCl (Effexor Xr) 75 mg PO DAILY [facility] Last Admin: 09/06/19 08:21 Dose: 75 mg Vital Signs & Weight: Vital Signs Temp Pulse Resp BP BP Pulse Ox 09/06/19 15:31 98.1 F 87 19 126/69 98 09/06/19 15:06 80 16 98 09/06/19 12:22 97.8 F 88 16 137/80 94 L 09/06/19 11:13 96 16 97 09/06/19 08:21 125/71 09/06/19 08:20 125/71 09/06/19 08:19 98.2 F 71 16 125/71 96 09/06/19 07:18 97 09/06/19 07:17 85 16 97 Weight 123 lb 3.2 oz - Physical Exam General: alert & oriented x3 HEENT: mucus membranes moist Neck: supple neck Cardiac: regular rate and rhythm Lungs: decreased breath sounds Neuro: grossly intact Abdomen: active bowel sounds Extremities: no edema Skin: clear Musculoskeletal: no pain - Labs Result Diagrams: 09/05/19 03:38 09/05/19 03:38 Troponin/CKMB CK-MB (CK-2) 5.6 ng/mL (0-6.6) 09/02/19 12:10 Troponin I 0.145 ng/mL (< 0.028) H 09/02/19 19:34 - Telemetry Sinus rhythms and dysrhythmias: sinus rhythm - Assessment/Plan Assessment/Plan: 1. New onset Cardiomyopathy 2. Likely ischemic CM 3. EF at 30 -35% 4. COPD PLAN: - Still not interested on [facility]. - He still wants medical therapy only. - Spoke about lifevest to bridge to ICD and he agrees to this. - Up titrate BB. - Discharge once lifevest set up complete.
--- NOTE | 2019-09-06 17:35 | PDOC.HOSPP ---
- Subjective Encounter Date: 09/06/19 Encounter Time: 10:20 Subjective: Pt seen for followup for cardiomyopathy. Feels well, no complaints today. - Objective Vital Signs & Weight: Vital Signs (12 hours) Temp Pulse Resp BP BP Pulse Ox 09/06/19 15:31 98.1 F 87 19 126/69 98 09/06/19 15:06 80 16 98 09/06/19 12:22 97.8 F 88 16 137/80 94 L 09/06/19 11:13 96 16 97 09/06/19 08:21 125/71 09/06/19 08:20 125/71 09/06/19 08:19 98.2 F 71 16 125/71 96 09/06/19 07:18 97 09/06/19 07:17 85 16 97 Weight Weight 123 lb 3.2 oz I&O: 09/05/19 09/06/19 09/07/19 06:59 06:59 06:59 Intake Total 4440 1820 Balance 4440 1820 Result Diagrams: 09/05/19 03:38 09/05/19 03:38 Additional Labs: Accuchecks 09/06/19 09/06/19 09/05/19 12:44 05:34 20:36 POC Glucose 135 H 124 H 157 H 09/05/19 18:01 POC Glucose 190 H labs and MARs reviewed by me EKG Reviewed by me: Yes (Tele: NSR) Hospitalist ROS - Review of Systems Cardiovascular: denies: chest pain, palpitations, orthopnea, paroxysmal noc. dyspnea, edema, light headedness Genitourinary: denies: dysuria, frequency, incontinence, hematuria, retention - Medication Medications: Active Medications Generic Name Dose Route Start Last Admin Trade Name Freq PRN Reason Stop Dose Admin Albuterol Sulfate 2 puff 09/03/19 09:00 09/06/19 15:06 Proventil Hfa INH 2 puff QID [facility] Administration Aspirin 81 mg 09/06/19 09:00 09/06/19 08:20 Ecotrin PO 81 mg DAILY [facility] Administration Atorvastatin Calcium 10 mg 09/03/19 09:00 09/06/19 08:19 Lipitor PO 10 mg DAILY [facility] Administration Calcium/Vitamin D 250 mg 09/02/19 21:00 09/06/19 16:31 Oscal + Vit D PO 250 mg TID [facility] Administration Carvedilol 12.5 mg 09/06/19 17:00 09/06/19 16:31 Coreg PO 12.5 mg BID-WM [facility] Administration Enoxaparin Sodium 40 mg 09/03/19 09:00 09/06/19 08:21 Lovenox SC 40 mg 0900 [facility] Administration Ferrous Sulfate 325 mg 09/03/19 09:00 09/06/19 08:20 Feosol PO 325 mg DAILY [facility] Administration Insulin Human Lispro 0 units 09/03/19 16:47 09/05/19 18:21 Humalog SC 2 units .MILD SLIDING SCALE PRN Administration Mild Correctional Scale Ipratropium [place] 1 puff 09/02/19 21:00 09/06/19 15:06 Atrovent Hfa INH 1 puff QID [facility] Administration Lisinopril 20 mg 09/06/19 09:00 09/06/19 08:20 Zestril PO 20 mg DAILY [facility] Administration Metformin HCl 1,000 mg 09/03/19 08:00 09/06/19 16:31 Glucophage PO 1,000 mg BID-WM [facility] Administration Pantoprazole Sodium 40 mg 09/03/19 09:00 09/06/19 08:20 Protonix PO 40 mg DAILY [facility] Administration Prednisone 40 mg 09/03/19 09:00 09/06/19 08:18 Prednisone PO 40 mg DAILY [facility] Administration Sodium Chloride 10 ml 09/02/19 21:00 09/06/19 08:21 Flush - Normal Saline IVF 10 ml Q12HR [facility] Administration Venlafaxine HCl 75 mg 09/03/19 09:00 09/06/19 08:21 Effexor Xr PO 75 mg DAILY [facility] Administration - Exam General Appearance: awake alert Eye: anicteric sclera ENT: no oropharyngeal lesions, moist mucosa Neck: supple Heart: RRR, normal peripheral pulses Respiratory: CTAB Gastrointestinal: soft, non-tender Neurological: cranial nerve grossly intact Musculoskeletal: normal strength Psychiatric: normal affect, normal behavior Hosp A/P (1) Cardiomyopathy Code(s): I42.9 - CARDIOMYOPATHY, UNSPECIFIED Status: Acute (2) Abnormal stress test Status: Acute (3) Elevated troponin Code(s): R79.89 - OTHER SPECIFIED ABNORMAL FINDINGS OF BLOOD CHEMISTRY Status : Acute (4) DM2 (diabetes mellitus, type 2) Status: Chronic (5) HTN (hypertension) Code(s): I10 - ESSENTIAL (PRIMARY) HYPERTENSION Status: Chronic (6) COPD exacerbation Code(s): J44.1 - CHRONIC OBSTRUCTIVE PULMONARY DISEASE W (ACUTE) EXACERBATION Status: Resolved - Plan Pt awaiting LifeVest (need approval from [facility]) COVID 19 ruled out. COPD exacerbation resolved with oxygen steroids and bronchodilators. Continue insulin sliding scale. Continue Lisinopril and Coreg
[2019-09-07 05:10] LABS: #Lymphocytes 1.3 thou/uL (1.20-3.40); #Monocytes 0.5 thou/uL (0.11-0.59); #Neutrophils 3.7 thou/uL (1.40-6.50); %Basophils 0.2 % (0.0-1.0); %Eosinophils 0.4 % (0.0-10.0); %Lymphocytes 23.6 % (21.0-51.0); %Monocytes 8.5 % (0.0-10.0); %Neutrophils 67.3 % (42.0-75.0); Hemoglobin 13.1 g/dL (14.0-18.0); Mean Corpuscular HGB CONC 33.9 g/dL (32.0-36.0); Mean Corpuscular Hemoglobin 32.1 pg (27.0-31.0); Mean Corpuscular Volume 94.6 fL (78.0-98.0); Mean Platelet Volume 7.6 fL (7.4-10.4); Platelet Count 238 thou/uL (130-400); RBC Distribution Width 12.8 % (11.5-14.5); White Blood Cell (WBC) Count 5.5 thou/uL (4.8-10.8)
[2019-09-07 05:32] LABS: Anion Gap 11 mmol/L (10-20); BUN (Urea Nitrogen) 16 mg/dL (8.4-25.7); Calc. Creatinine Clearance 71 mL/min (70-130); Calcium 9.2 mg/dL (7.8-10.44); Carbon Dioxide 29 mmol/L (23-31); Chloride 99 mmol/L (98-107); Estimated GFR-MDRD Greater than 90; Glucose 149 mg/dL (80-115); Potassium 3.9 mmol/L (3.5-5.1); Sodium 135 mmol/L (136-145)
[2019-09-07] MEDS: Albuterol 200 PUFF (6.7GM INHALER) INH SCH ×4 (07:18→18:50)
[2019-09-07] MEDS: Ipratropium Oral Inhaler INH SCH ×4 (07:19→18:50)
[2019-09-07] MEDS: Aspirin 81 mg Enteric Coated Tablet PO SCH (08:04)
[2019-09-07] MEDS: Carvedilol 6.25 MG TAB PO SCH ×2 (08:04→17:11)
[2019-09-07] MEDS: Atorvastatin Calcium 10 MG TAB PO SCH (08:04)
[2019-09-07] MEDS: predniSONE 20 MG TAB PO SCH (08:04)
[2019-09-07] MEDS: Enoxaparin Sodium 40 MG/0.4 ML SYRINGE SC SCH (08:04)
[2019-09-07] MEDS: metFORMIN 500 MG TAB PO SCH ×2 (08:04→17:11)
[2019-09-07] MEDS: Calcium Carbonate + Vit D 250 MG TAB PO SCH ×3 (08:04→20:19)
[2019-09-07] MEDS: Ferrous Sulfate 325 MG TAB PO SCH (08:04)
[2019-09-07] MEDS: Lisinopril 20 MG TAB PO SCH (08:05)
[2019-09-07] MEDS: Venlafaxine HCl XR 75 MG CAP PO SCH (08:05)
[2019-09-07] MEDS: HumaLOG 300 UNITS/3 ML VIAL SC PRN ×2 (11:32→17:10)
--- NOTE | 2019-09-07 12:35 | PDOC.CPN ---
- Subjective Date: 09/07/19 Time: 12:35 Interval history: No new issues. No angina. SOB at baseline. - Review of Systems General: denies: fever/chills, weight/appetite/sleep changes, night sweats, fatigue Respiratory: denies: cough, congestion, shortness of breath, exercise intolerance Cardiovascular: denies: chest pain, palpitation, edema, paroxysmal nocturnal dyspnea, orthopnea Gastrointestinal: denies: nausea, vomiting, diarrhea, constipation, abd pain, GI bleeding Musculoskeletal: denies: pain, tenderness, stiffness, swelling, arthritis/ arthralgias Neurological: denies: numbness, syncope, seizure, weakness - Objective Allergies/Adverse Reactions: Allergies Allergy/AdvReac Type Severity Reaction Status Date / Time No Known Drug Allergies Allergy Verified 09/02/19 19:46 Visit Medications: Current Medications Acetaminophen (Tylenol) 650 mg PO Q4H PRN PRN Reason: Headache/Fever/Mild Pain (1-3) Albuterol Sulfate (Proventil Hfa) 1 puff INH Q8H PRN PRN Reason: SOB &/or Wheezing Albuterol Sulfate (Proventil Hfa) 2 puff INH QID [facility] Last Admin: 09/07/19 10:58 Dose: 2 puff Aspirin (Ecotrin) 81 mg PO DAILY [facility] Last Admin: 09/07/19 08:04 Dose: 81 mg Atorvastatin Calcium (Lipitor) 10 mg PO DAILY [facility] Last Admin: 09/07/19 08:04 Dose: 10 mg Calcium/Vitamin D (Oscal + Vit D) 250 mg PO TID [facility] Last Admin: 09/07/19 08:04 Dose: 250 mg Carvedilol (Coreg) 12.5 mg PO BID-[facility] Last Admin: 09/07/19 08:04 Dose: 12.5 mg Dextrose/Water (Dextrose 50%) 25 gm SLOW IVP PRN PRN PRN Reason: Hypoglycemia Enoxaparin Sodium (Lovenox) 40 mg SC 0900 [facility] Last Admin: 09/07/19 08:04 Dose: 40 mg Ferrous Sulfate (Feosol) 325 mg PO DAILY [facility] Last Admin: 09/07/19 08:04 Dose: 325 mg Glucagon (Glucagon) 1 mg IM PRN PRN PRN Reason: Hypoglycemia Dextrose/Water (D5w) 1,000 mls @ 0 mls/hr IV .Q0M PRN PRN Reason: Hypoglycemia Insulin Human Lispro (Humalog) 0 units SC .MILD SLIDING SCALE PRN PRN Reason: Mild Correctional Scale Last Admin: 09/07/19 11:32 Dose: 2 units Ipratropium [place] (Atrovent Hfa) 1 puff INH QID [facility] Last Admin: 09/07/19 10:59 Dose: 1 puff Lisinopril (Zestril) 20 mg PO DAILY [facility] Last Admin: 09/07/19 08:05 Dose: 20 mg Metformin HCl (Glucophage) 1,000 mg PO BID-[facility] Last Admin: 09/07/19 08:04 Dose: 1,000 mg Ondansetron HCl (Zofran Odt) 4 mg PO Q6H PRN PRN Reason: Nausea/Vomiting Ondansetron HCl (Zofran) 4 mg IVP Q6H PRN PRN Reason: Nausea/Vomiting Pantoprazole Sodium (Protonix) 40 mg PO DAILY [facility] Last Admin: 09/07/19 08:05 Dose: 40 mg Prednisone (Prednisone) 40 mg PO DAILY [facility] Last Admin: 09/07/19 08:04 Dose: 40 mg Senna/Docusate Sodium (Senokot S) 2 tab PO BID PRN PRN Reason: Constipation Sodium Chloride (Flush - Normal Saline) 10 ml IVF Q12HR [facility] Last Admin: 09/07/19 08:05 Dose: 10 ml Sodium Chloride (Flush - Normal Saline) 10 ml IVF PRN PRN PRN Reason: Saline Flush Venlafaxine HCl (Effexor Xr) 75 mg PO DAILY [facility] Last Admin: 09/07/19 08:05 Dose: 75 mg Vital Signs & Weight: Vital Signs Temp Pulse Resp BP BP Pulse Ox 09/07/19 11:31 98.3 F 97 18 113/69 96 09/07/19 10:59 94 20 97 09/07/19 08:00 98.5 F 84 18 131/85 98 09/07/19 07:20 97 09/07/19 07:19 88 16 97 09/07/19 04:00 97.6 F 88 20 131/67 98 Weight 123 lb 8 oz - Physical Exam General: alert & oriented x3 HEENT: mucus membranes moist Neck: supple neck Cardiac: regular rate and rhythm Lungs: decreased breath sounds Neuro: grossly intact Abdomen: active bowel sounds Extremities: no edema Skin: clear Musculoskeletal: no pain - Labs Result Diagrams: 09/07/19 04:22 09/07/19 04:22 Troponin/CKMB CK-MB (CK-2) 5.6 ng/mL (0-6.6) 09/02/19 12:10 Troponin I 0.145 ng/mL (< 0.028) H 09/02/19 19:34 - Telemetry Sinus rhythms and dysrhythmias: sinus rhythm - Assessment/Plan Assessment/Plan: 1. New onset Cardiomyopathy 2. Likely ischemic CM 3. EF at 30 -35% 4. COPD PLAN: - Still not interested on [facility]. - He still wants medical therapy only. - Spoke about lifevest to bridge to ICD and he agrees to this. - Continue current meds. - Discharge once lifevest set up complete.
--- NOTE | 2019-09-07 18:04 | DIS ---
DATE OF ADMISSION: 09/02/2019 DATE OF DISCHARGE: 09/07/2019 PRIMARY CARE PROVIDER: Unknown. DISCHARGE DIAGNOSES: 1. Chest pain. 2. Chest pain, likely secondary to cardiac etiology. 3. New-onset cardiomyopathy. 4. Likely ischemic cardiomyopathy. 5. Chronic obstructive pulmonary disease. 6. Hyponatremia. CONDITION OF THE PATIENT ON THE DAY OF DISCHARGE: Stable. I assessed Mr. Hough on the day of discharge. He denies any chest pain or shortness of breath. Vital signs are stable. S1 and S2 are heard, regular. Lungs are clear to auscultation bilaterally. DISCHARGE MEDICATIONS: 1. Albuterol p.r.n. 2. Lipitor 10 mg daily. 3. Calcium carbonate plus vitamin D 250 mg 3 times a day. 4. Ferrous sulfate 325 mg daily. 5. Novolin N insulin 10 units daily, 7 units at bedtime, and 2 units 2 times a day. 6. Lisinopril 10 mg daily. 7. Metformin 1000 mg 2 times a day. 8. Dulera 200/5 mcg 2 puffs 2 times a day. 9. Nutritional supplement 3 times a day. 10. Omeprazole 20 mg daily. 11. Spiriva 18 mcg daily. 12. Venlafaxine 75 mg daily. 13. Aspirin 81 mg daily. 14. Coreg 12.5 mg 2 times a day. 15. Oral prednisone taper. CONSULTATIONS DURING THIS HOSPITALIZATION: Cardiology, Dr. Walters. HOSPITAL COURSE: Mr. Hough is a pleasant 63-year-old gentleman, who was admitted to [facility] on September 02, 2019, for shortness of breath and chest pain as well as elevated troponin. He was ruled out for COVID virus infection. He had a nuclear stress test, which showed extensive prior infarction involving the anterior wall and septum and probable small reversible defect in the inferior wall. He was seen by Cardiology Service. Coronary angiography was recommended, but the patient declined. He had 2D echocardiogram, which showed left ventricular ejection fraction of 30% to 35%, grade 1/3 diastolic dysfunction, anteroseptal hypokinesis, apical and anterior akinesis, mildly dilated left atrium, mild annular calcification, mild mitral regurgitation, sclerotic aortic valve, and mild tricuspid regurgitation. After discussion with Cardiology Service and with Hospitalist Service, the patient agreed to have LifeVest. He is being fitted with LifeVest before return to the [facility]. POSTACUTE CARE FOLLOWUP: With primary care provider in 3 days and with fur liner at [facility] in 7 to 10 days. DIET: Heart healthy and diabetic. ACTIVITY: As tolerated. DISCHARGE DESTINATION: [place] [employer]. Many thanks for allowing me to participate in your patient's care. Please feel free to contact me with any questions or concerns. Job ID: [id number]
--- NOTE | 2019-09-07 18:15 | PDOC.HOSPP ---
- Subjective Encounter Date: 09/07/19 Encounter Time: 18:14 Subjective: Pt seen for followup for cardiomyopathy. No complaints today. - Objective Vital Signs & Weight: Vital Signs (12 hours) Temp Pulse Resp BP BP Pulse Ox 09/07/19 15:12 98.7 F 77 18 115/56 L 96 09/07/19 14:51 81 20 97 09/07/19 11:31 98.3 F 97 18 113/69 96 09/07/19 10:59 94 20 97 09/07/19 08:00 98.5 F 84 18 131/85 98 09/07/19 07:20 97 09/07/19 07:19 88 16 97 Weight Weight 123 lb 8 oz I&O: 09/06/19 09/07/19 09/08/19 06:59 06:59 06:59 Intake Total 1820 1560 Balance 1820 1560 Result Diagrams: 09/07/19 04:22 09/07/19 04:22 Additional Labs: Accuchecks 09/07/19 09/07/19 09/07/19 16:41 10:21 05:56 POC Glucose 183 H 180 H 124 H 09/06/19 20:32 POC Glucose 178 H Labs and MARs reviewed by me EKG Reviewed by me: Yes (Tele: NSR) Hospitalist ROS - Review of Systems Cardiovascular: denies: chest pain, palpitations, orthopnea, paroxysmal noc. dyspnea, edema, light headedness Musculoskeletal: denies: neck pain, shoulder pain, arm pain, back pain, hand pain - Medication Medications: Active Medications Generic Name Dose Route Start Last Admin Trade Name Liangq PRN Reason Stop Dose Admin Albuterol Sulfate 2 puff 09/03/19 09:00 09/07/19 14:50 Proventil Hfa INH 2 puff QID [facility] Administration Aspirin 81 mg 09/06/19 09:00 09/07/19 08:04 Ecotrin PO 81 mg DAILY [facility] Administration Atorvastatin Calcium 10 mg 09/03/19 09:00 09/07/19 08:04 Lipitor PO 10 mg DAILY [facility] Administration Calcium/Vitamin D 250 mg 09/02/19 21:00 09/07/19 14:29 Oscal + Vit D PO 250 mg TID [facility] Administration Carvedilol 12.5 mg 09/06/19 17:00 09/07/19 17:11 Coreg PO 12.5 mg BID-WM [facility] Administration Enoxaparin Sodium 40 mg 09/03/19 09:00 09/07/19 08:04 Lovenox SC 40 mg 0900 [facility] Administration Ferrous Sulfate 325 mg 09/03/19 09:00 09/07/19 08:04 Feosol PO 325 mg DAILY [facility] Administration Insulin Human Lispro 0 units 09/03/19 16:47 09/07/19 17:10 Humalog SC 2 units .MILD SLIDING SCALE PRN Administration Mild Correctional Scale Ipratropium [place] 1 puff 09/02/19 21:00 09/07/19 14:51 Atrovent Hfa INH 1 puff QID [facility] Administration Lisinopril 20 mg 09/06/19 09:00 09/07/19 08:05 Zestril PO 20 mg DAILY [facility] Administration Metformin HCl 1,000 mg 09/03/19 08:00 09/07/19 17:11 Glucophage PO 1,000 mg BID- [facility] Administration Pantoprazole Sodium 40 mg 09/03/19 09:00 09/07/19 08:05 Protonix PO 40 mg DAILY [facility] Administration Prednisone 40 mg 09/03/19 09:00 09/07/19 08:04 Prednisone PO 40 mg DAILY [facility] Administration Sodium Chloride 10 ml 09/02/19 21:00 09/07/19 08:05 Flush - Normal Saline IVF 10 ml Q12HR [facility] Administration Venlafaxine HCl 75 mg 09/03/19 09:00 09/07/19 08:05 Effexor Xr PO 75 mg DAILY [facility] Administration - Exam General Appearance: awake alert Eye: anicteric sclera ENT: moist mucosa Neck: supple Heart: RRR Respiratory: CTAB, no wheezes Gastrointestinal: soft Extremities: no cyanosis Skin: normal turgor Musculoskeletal: normal tone, normal strength Psychiatric: normal affect, normal behavior, oriented to person Hosp A/P (1) Cardiomyopathy Code(s): I42.9 - CARDIOMYOPATHY, UNSPECIFIED Status: Acute (2) Abnormal stress test Status: Acute (3) Elevated troponin Code(s): R79.89 - OTHER SPECIFIED ABNORMAL FINDINGS OF BLOOD CHEMISTRY Status : Acute (4) DM2 (diabetes mellitus, type 2) Status: Chronic (5) HTN (hypertension) Code(s): I10 - ESSENTIAL (PRIMARY) HYPERTENSION Status: Chronic (6) COPD exacerbation Code(s): J44.1 - CHRONIC OBSTRUCTIVE PULMONARY DISEASE W (ACUTE) EXACERBATION Status: Resolved - Plan Pt has LifeVest, but [facility] unit refused to take him back today. Need to sort issue. COVID 19 ruled out. COPD exacerbation resolved. Continue insulin sliding scale. Continue Lisinopril and Coreg
[2019-09-08] MEDS: Albuterol 200 PUFF (6.7GM INHALER) INH SCH ×4 (07:11→18:45)
[2019-09-08] MEDS: Ipratropium Oral Inhaler INH SCH ×4 (07:11→18:47)
[2019-09-08] MEDS: Carvedilol 6.25 MG TAB PO SCH ×2 (08:32→16:41)
[2019-09-08] MEDS: metFORMIN 500 MG TAB PO SCH ×2 (08:32→16:41)
[2019-09-08] MEDS: Lisinopril 20 MG TAB PO SCH (09:43)
[2019-09-08] MEDS: Venlafaxine HCl XR 75 MG CAP PO SCH (09:43)
[2019-09-08] MEDS: Atorvastatin Calcium 10 MG TAB PO SCH (09:43)
[2019-09-08] MEDS: Aspirin 81 mg Enteric Coated Tablet PO SCH (09:43)
[2019-09-08] MEDS: Ferrous Sulfate 325 MG TAB PO SCH (09:43)
[2019-09-08] MEDS: Enoxaparin Sodium 40 MG/0.4 ML SYRINGE SC SCH (09:48)
[2019-09-08] MEDS: Calcium Carbonate + Vit D 250 MG TAB PO SCH ×3 (09:48→20:12)
[2019-09-08] MEDS: predniSONE 20 MG TAB PO SCH (09:48)
[2019-09-08] MEDS: HumaLOG 300 UNITS/3 ML VIAL SC PRN ×2 (12:27→17:37)
--- NOTE | 2019-09-08 13:22 | PDOC.CPN ---
- Subjective Date: 09/08/19 Time: 13:20 Interval history: No new issues. Lifevest is in place now. - Review of Systems General: denies: fever/chills, weight/appetite/sleep changes, night sweats, fatigue Respiratory: denies: cough, congestion, shortness of breath, exercise intolerance Cardiovascular: denies: chest pain, palpitation, edema, paroxysmal nocturnal dyspnea, orthopnea Gastrointestinal: denies: nausea, vomiting, diarrhea, constipation, abd pain, GI bleeding Musculoskeletal: denies: pain, tenderness, stiffness, swelling, arthritis/ arthralgias Neurological: denies: numbness, syncope, seizure, weakness - Objective Allergies/Adverse Reactions: Allergies Allergy/AdvReac Type Severity Reaction Status Date / Time No Known Drug Allergies Allergy Verified 09/02/19 19:46 Visit Medications: Current Medications Acetaminophen (Tylenol) 650 mg PO Q4H PRN PRN Reason: Headache/Fever/Mild Pain (1-3) Albuterol Sulfate (Proventil Hfa) 1 puff INH Q8H PRN PRN Reason: SOB &/or Wheezing Albuterol Sulfate (Proventil Hfa) 2 puff INH QID-RT [facility] Last Admin: 09/08/19 10:49 Dose: Not Given Aspirin (Ecotrin) 81 mg PO DAILY [facility] Last Admin: 09/08/19 09:43 Dose: 81 mg Atorvastatin Calcium (Lipitor) 10 mg PO DAILY [facility] Last Admin: 09/08/19 09:43 Dose: 10 mg Calcium/Vitamin D (Oscal + Vit D) 250 mg PO TID [facility] Last Admin: 09/08/19 09:48 Dose: 250 mg Carvedilol (Coreg) 12.5 mg PO BID-WM [facility] Last Admin: 09/08/19 08:32 Dose: 12.5 mg Dextrose/Water (Dextrose 50%) 25 gm SLOW IVP PRN PRN PRN Reason: Hypoglycemia Enoxaparin Sodium (Lovenox) 40 mg SC 0900 [facility] Last Admin: 09/08/19 09:48 Dose: 40 mg Ferrous Sulfate (Feosol) 325 mg PO DAILY [facility] Last Admin: 09/08/19 09:43 Dose: 325 mg Glucagon (Glucagon) 1 mg IM PRN PRN PRN Reason: Hypoglycemia Dextrose/Water (D5w) 1,000 mls @ 0 mls/hr IV .Q0M PRN PRN Reason: Hypoglycemia Insulin Human Lispro (Humalog) 0 units SC .MILD SLIDING SCALE PRN PRN Reason: Mild Correctional Scale Last Admin: 09/08/19 12:27 Dose: 2 units Ipratropium [place] (Atrovent Hfa) 1 puff INH QID-RT [facility] Last Admin: 09/08/19 10:49 Dose: Not Given Lisinopril (Zestril) 20 mg PO DAILY [facility] Last Admin: 09/08/19 09:43 Dose: 20 mg Metformin HCl (Glucophage) 1,000 mg PO BID-[facility] Last Admin: 09/08/19 08:32 Dose: 1,000 mg Ondansetron HCl (Zofran Odt) 4 mg PO Q6H PRN PRN Reason: Nausea/Vomiting Ondansetron HCl (Zofran) 4 mg IVP Q6H PRN PRN Reason: Nausea/Vomiting Pantoprazole Sodium (Protonix) 40 mg PO DAILY [facility] Last Admin: 09/08/19 09:43 Dose: 40 mg Prednisone (Prednisone) 40 mg PO DAILY [facility] Last Admin: 09/08/19 09:48 Dose: 40 mg Senna/Docusate Sodium (Senokot S) 2 tab PO BID PRN PRN Reason: Constipation Sodium Chloride (Flush - Normal Saline) 10 ml IVF Q12HR [facility] Last Admin: 09/08/19 09:43 Dose: Not Given Sodium Chloride (Flush - Normal Saline) 10 ml IVF PRN PRN PRN Reason: Saline Flush Venlafaxine HCl (Effexor Xr) 75 mg PO DAILY [facility] Last Admin: 09/08/19 09:43 Dose: 75 mg Vital Signs & Weight: Vital Signs Temp Pulse Resp BP Pulse Ox 09/08/19 12:00 98.0 F 87 15 122/60 95 09/08/19 08:00 97.7 F 88 18 140/72 96 09/08/19 07:11 84 16 100 09/08/19 04:00 97.8 F 85 20 140/73 96 Weight 124 lb 11.2 oz - Physical Exam General: alert & oriented x3 HEENT: mucus membranes moist Neck: supple neck Cardiac: regular rate and rhythm Lungs: decreased breath sounds Neuro: grossly intact Abdomen: active bowel sounds Extremities: no edema Skin: clear Musculoskeletal: no pain - Labs Result Diagrams: 09/07/19 04:22 09/07/19 04:22 Troponin/CKMB CK-MB (CK-2) 5.6 ng/mL (0-6.6) 09/02/19 12:10 Troponin I 0.145 ng/mL (< 0.028) H 09/02/19 19:34 - Telemetry Sinus rhythms and dysrhythmias: sinus rhythm - Assessment/Plan Assessment/Plan: 1. New onset Cardiomyopathy 2. Likely ischemic CM 3. EF at 30 -35% 4. COPD PLAN: - Still not interested on [facility]. - He still wants medical therapy only. - Continue current meds. Will add Aldactone. - Lifevest in place. - Will sign off. Please call with any question. - Follow up with [facility] at [facility]
--- NOTE | 2019-09-08 18:08 | PDOC.HOSPP ---
- Subjective Encounter Date: 09/08/19 Encounter Time: 07:30 Subjective: Pt seen for followup for cardiomyopathy. No new complaints. - Objective Vital Signs & Weight: Vital Signs (12 hours) Temp Pulse Resp BP Pulse Ox 09/08/19 15:37 97.8 F 80 19 96/58 L 97 09/08/19 12:00 98.0 F 87 15 122/60 95 09/08/19 08:00 97.7 F 88 18 140/72 96 09/08/19 07:11 84 16 100 Weight Weight 124 lb 11.2 oz I&O: 09/07/19 09/08/19 09/09/19 06:59 06:59 06:59 Intake Total 1560 1450 Balance 1560 1450 Result Diagrams: 09/07/19 04:22 09/07/19 04:22 Additional Labs: Accuchecks 09/08/19 09/08/19 09/08/19 17:02 12:10 06:09 POC Glucose 232 H 158 H 116 H 09/07/19 20:29 POC Glucose 134 H Labs and MARs reviewed by me EKG Reviewed by me: Yes (Tele: NSR) Hospitalist ROS - Review of Systems Cardiovascular: denies: chest pain, palpitations, orthopnea, paroxysmal noc. dyspnea, edema, light headedness Gastrointestinal: denies: nausea, vomiting, abdominal pain, diarrhea, constipation, melena, hematochezia - Medication Medications: Active Medications Generic Name Dose Route Start Last Admin Trade Name Freq PRN Reason Stop Dose Admin Albuterol Sulfate 2 puff 09/08/19 11:00 09/08/19 14:51 Proventil Hfa INH 2 puff QID-RT [facility] Administration Aspirin 81 mg 09/06/19 09:00 09/08/19 09:43 Ecotrin PO 81 mg DAILY [facility] Administration Atorvastatin Calcium 10 mg 09/03/19 09:00 09/08/19 09:43 Lipitor PO 10 mg DAILY [facility] Administration Calcium/Vitamin D 250 mg 09/02/19 21:00 09/08/19 15:48 Oscal + Vit D PO 250 mg TID [facility] Administration Carvedilol 12.5 mg 09/06/19 17:00 09/08/19 16:41 Coreg PO 12.5 mg BID-WM [facility] Administration Enoxaparin Sodium 40 mg 09/03/19 09:00 09/08/19 09:48 Lovenox SC 40 mg 0900 [facility] Administration Ferrous Sulfate 325 mg 09/03/19 09:00 09/08/19 09:43 Feosol PO 325 mg DAILY [facility] Administration Insulin Human Lispro 0 units 09/03/19 16:47 09/08/19 17:37 Humalog SC 3 units .MILD SLIDING SCALE PRN Administration Mild Correctional Scale Ipratropium [place] 1 puff 09/08/19 11:00 09/08/19 14:52 Atrovent Hfa INH 1 puff QID-RT [facility] Administration Lisinopril 20 mg 09/06/19 09:00 09/08/19 09:43 Zestril PO 20 mg DAILY [facility] Administration Metformin HCl 1,000 mg 09/03/19 08:00 09/08/19 16:41 Glucophage PO 1,000 mg BID-WM [facility] Administration Pantoprazole Sodium 40 mg 09/03/19 09:00 09/08/19 09:43 Protonix PO 40 mg DAILY [facility] Administration Prednisone 40 mg 09/03/19 09:00 09/08/19 09:48 Prednisone PO 40 mg DAILY [facility] Administration Sodium Chloride 10 ml 09/02/19 21:00 09/08/19 09:43 Flush - Normal Saline IVF Not Given Q12HR [facility] Venlafaxine HCl 75 mg 09/03/19 09:00 09/08/19 09:43 Effexor Xr PO 75 mg DAILY [facility] Administration - Exam General Appearance: awake alert Eye: anicteric sclera ENT: no oropharyngeal lesions Neck: supple, no thyromegaly Heart: RRR Respiratory: CTAB Gastrointestinal: soft, normal bowel sounds Extremities: no cyanosis Neurological: cranial nerve grossly intact Psychiatric: normal affect, normal behavior Hosp A/P (1) Cardiomyopathy Code(s): I42.9 - CARDIOMYOPATHY, UNSPECIFIED Status: Acute (2) Abnormal stress test Status: Acute (3) Elevated troponin Code(s): R79.89 - OTHER SPECIFIED ABNORMAL FINDINGS OF BLOOD CHEMISTRY Status : Acute (4) DM2 (diabetes mellitus, type 2) Status: Chronic (5) HTN (hypertension) Code(s): I10 - ESSENTIAL (PRIMARY) HYPERTENSION Status: Chronic (6) COPD exacerbation Code(s): J44.1 - CHRONIC OBSTRUCTIVE PULMONARY DISEASE W (ACUTE) EXACERBATION Status: Resolved - Plan Pt has LifeVest, will need [facility]irmary bed COVID 19 ruled out. COPD exacerbation resolved. Continue insulin sliding scale. Pt is on Lisinopril and Coreg To [facility] infirm[facility] when bed available.
[2019-09-09] MEDS: Albuterol 200 PUFF (6.7GM INHALER) INH SCH ×4 (06:45→20:09)
[2019-09-09] MEDS: Ipratropium Oral Inhaler INH SCH ×4 (06:45→20:09)
[2019-09-09] MEDS ORDERED: Spironolactone 25 MG TAB PO SCH (08:00)
[2019-09-09] MEDS: metFORMIN 500 MG TAB PO SCH ×2 (09:03→17:59)
[2019-09-09] MEDS: Ferrous Sulfate 325 MG TAB PO SCH (09:03)
[2019-09-09] MEDS: predniSONE 20 MG TAB PO SCH (09:03)
[2019-09-09] MEDS: Venlafaxine HCl XR 75 MG CAP PO SCH (09:03)
[2019-09-09] MEDS: Calcium Carbonate + Vit D 250 MG TAB PO SCH ×3 (09:04→22:05)
[2019-09-09] MEDS: Aspirin 81 mg Enteric Coated Tablet PO SCH (09:04)
[2019-09-09] MEDS: Atorvastatin Calcium 10 MG TAB PO SCH (09:04)
[2019-09-09] MEDS: Carvedilol 6.25 MG TAB PO SCH ×2 (09:04→17:59)
[2019-09-09] MEDS: Lisinopril 20 MG TAB PO SCH (09:04)
[2019-09-09] MEDS: Enoxaparin Sodium 40 MG/0.4 ML SYRINGE SC SCH (09:05)
--- NOTE | 2019-09-09 19:15 | PDOC.HOSPP ---
- Subjective Encounter Date: 09/09/19 Encounter Time: 19:13 Subjective: Pt seen for followup for cardiomyopathy. No complaints today. - Objective Vital Signs & Weight: Vital Signs (12 hours) Temp Pulse Resp BP Pulse Ox 09/09/19 15:30 97.9 F 84 18 121/66 95 09/09/19 11:10 97.1 F L 76 18 148/73 H 100 09/09/19 09:00 97.2 F L 71 14 147/76 H 99 Weight Weight 124 lb 6.4 oz I&O: 09/08/19 09/09/19 09/10/19 06:59 06:59 06:59 Intake Total 1450 1976 1440 Output Total 0 Balance 1450 1976 1440 Result Diagrams: 09/07/19 04:22 09/07/19 04:22 Additional Labs: Accuchecks 09/09/19 09/09/19 09/09/19 16:36 10:47 05:21 POC Glucose 183 H 108 151 H 09/08/19 20:05 POC Glucose 97 Labs and MARs reviewed by me EKG Reviewed by me: Yes (Tele: NSR) Hospitalist ROS - Review of Systems Constitutional: denies: fever, chills, sweats, weakness Cardiovascular: denies: chest pain, palpitations, orthopnea, paroxysmal noc. dyspnea, edema, light headedness - Medication Medications: Active Medications Generic Name Dose Route Start Last Admin Trade Name Freq PRN Reason Stop Dose Admin Albuterol Sulfate 2 puff 09/08/19 11:00 09/09/19 15:30 Proventil Hfa INH 2 puff QID-RT [facility] Administration Aspirin 81 mg 09/06/19 09:00 09/09/19 09:04 Ecotrin PO 81 mg DAILY [facility] Administration Atorvastatin Calcium 10 mg 09/03/19 09:00 09/09/19 09:04 Lipitor PO 10 mg DAILY [facility] Administration Calcium/Vitamin D 250 mg 09/02/19 21:00 09/09/19 17:59 Oscal + Vit D PO 250 mg TID [facility] Administration Carvedilol 12.5 mg 09/06/19 17:00 09/09/19 17:59 Coreg PO 12.5 mg BID-WM [facility] Administration Enoxaparin Sodium 40 mg 09/03/19 09:00 09/09/19 09:05 Lovenox SC 40 mg 0900 [facility] Administration Ferrous Sulfate 325 mg 09/03/19 09:00 09/09/19 09:03 Feosol PO 325 mg DAILY [facility] Administration Insulin Human Lispro 0 units 09/03/19 16:47 09/08/19 17:37 Humalog SC 3 units .MILD SLIDING SCALE PRN Administration Mild Correctional Scale Ipratropium [place] 1 puff 09/08/19 11:00 09/09/19 15:30 Atrovent Hfa INH 1 puff QID-RT [facility] Administration Lisinopril 20 mg 09/06/19 09:00 09/09/19 09:04 Zestril PO 20 mg DAILY [facility] Administration Metformin HCl 1,000 mg 09/03/19 08:00 09/09/19 17:59 Glucophage PO 1,000 mg BID-WM [facility] Administration Pantoprazole Sodium 40 mg 09/03/19 09:00 09/09/19 09:03 Protonix PO 40 mg DAILY [facility] Administration Prednisone 40 mg 09/03/19 09:00 09/09/19 09:03 Prednisone PO 40 mg DAILY [facility] Administration Sodium Chloride 10 ml 09/02/19 21:00 09/09/19 09:05 Flush - Normal Saline IVF Not Given Q12HR [facility] Spironolactone 12.5 mg 09/09/19 08:00 09/09/19 09:04 Aldactone PO 12.5 mg QAM-WM [facility] Administration Venlafaxine HCl 75 mg 09/03/19 09:00 09/09/19 09:03 Effexor Xr PO 75 mg DAILY [facility] Administration - Exam General Appearance: awake alert Eye: anicteric sclera ENT: normocephalic atraumatic Neck: supple, no thyromegaly Heart: RRR Respiratory: CTAB Gastrointestinal: soft, non-tender Extremities: no cyanosis Musculoskeletal: normal tone Psychiatric: normal affect, normal behavior Hosp A/P (1) Cardiomyopathy Code(s): I42.9 - CARDIOMYOPATHY, UNSPECIFIED Status: Acute (2) Abnormal stress test Status: Acute (3) Elevated troponin Code(s): R79.89 - OTHER SPECIFIED ABNORMAL FINDINGS OF BLOOD CHEMISTRY Status : Acute (4) DM2 (diabetes mellitus, type 2) Status: Chronic (5) HTN (hypertension) Code(s): I10 - ESSENTIAL (PRIMARY) HYPERTENSION Status: Chronic (6) COPD exacerbation Code(s): J44.1 - CHRONIC OBSTRUCTIVE PULMONARY DISEASE W (ACUTE) EXACERBATION Status: Resolved - Plan [facility]. COPD exacerbation resolved. Continue insulin sliding scale. Continue Lisinopril and Coreg To [facility] when bed available. Pt had abnormal stress test, declined cath.
[2019-09-09 20:42] VITALS: BP 127/67; TEMP 98.3
--- NOTE | 2019-09-12 07:41 | PQF ---
ALISTAIR Cameron [id number] CLINICAL DOCUMENTATION CLARIFICATION FORM: POST DISCHARGE Addendum to original discharge summary date: ____ Late entry note date: __ DATE: 09/12/2019 ATTN:Alistair Lopez Please exercise your independent, professional judgment in responding to the clarification form. Clinical indicators are provided on the bottom of this form for your review Please check appropriate box(s): [x ] Acute Respiratory Failure: [ x ] with Hypoxia [ ] Acute Respiratory Failure due to: (etiology) [ ] Hypoxia [ ] Other diagnosis [ ] Unable to determine For continuity of documentation, please document condition throughout progress notes and discharge summary. Thank You. CLINICAL INDICATORS - SIGNS / SYMPTOMS / LABS ED Notes 09/01 "presents due to dyspnea" ED Notes 09/01 "reports cough, SOB and sputum rogers" 09/01 "patient was found to be wheezing and oxygen sat was in the high 80s" 09/01 "dyspnea on exacertion" 09/01 "hypoxia" Vital Signs Respi: 09/01=24 09/02=21 Vital Signs 02 sat: 09/02=97 09/03=95 09/05=90 09/08=90 RISK FACTORS 63 years old male-ED Notes 09/01 DM-ED Notes 09/01 COPD-HP 09/01 HX smoker-HP 09/01 Ischemic cardiomyopathy-DS 09/06 TREATMENTS: Chest Xray-Collected 09/01 Oxygen via [place]-HP 09/01 Albuterol 2gm Neb-MAR 09/01 (This form is maintained as a part of the permanent medical record) 2014 [employer]. All Rights Reserved [email or web address] [phone] [email or web address]
--- NOTE | 2019-09-14 10:41 | DIS ---
DATE OF ADMISSION: 09/02/2019 DATE OF DISCHARGE: 09/09/2019 PRIMARY CARE PROVIDER: Unknown. DISCHARGE DIAGNOSES: 1. Chest pain. 2. Chest pain, likely secondary to cardiac etiology. 3. New-onset cardiomyopathy, likely ischemic. 4. Chronic obstructive pulmonary disease. 5. Hyponatremia. CONDITION: Condition of the patient on the day of discharge: Stable. I assessed Mr. Hough on the day of discharge. Please refer to my daily progress note for further details regarding this [id number] encounter. Please note that I dictated a discharge summary on Mr. Hough on September 07, 2019. He could not be discharged to [facility] while waiting for [facility] Bed. On September 08, he had [facility] Bed available and was discharged. DISCHARGE MEDICATIONS: As dictated in my discharge summary dated September 07, 2019. HOSPITAL COURSE: As dictated in my prior discharge summary dated September 07, 2019. The patient could not be discharged that day because of lack of [facility]. POST-ACUTE CARE FOLLOWUP: Diet, activity: As dictated in my discharge summary dated September 07, 2019. DISCHARGE DESTINATION: [place] [employer]. TIME SPENT: Total amount of time spent in coordinating this discharge, 25 minutes. Job ID: [id number]
== END 2019-09-09 22:19 | DRG 189 ==
LOC: ERS 11:55 → 2SW 18:08 → OBSVTOIN 18:08 → 2NO 09-03 17:13
PROVIDERS: ADMIT Internal Medicine; ATTEND Internal Medicine
DX: J96.01 Acute respiratory failure with hypoxia (principal); J44.1 Chronic obstructive pulmonary disease with (acute) exacerbation; E87.1 Hypo-osmolality and hyponatremia; I25.5 Ischemic cardiomyopathy; E11.9 Type 2 diabetes mellitus without complications; E78.5 Hyperlipidemia, unspecified; I10 Essential (primary) hypertension; Z96.642 Presence of left artificial hip joint; F32.9 Major depressive disorder, single episode, unspecified; I25.9 Chronic ischemic heart disease, unspecified; Z20.828 Contact with and (suspected) exposure to other viral communicable diseases; F31.9 Bipolar disorder, unspecified; I08.1 Rheumatic disorders of both mitral and tricuspid valves; Z87.891 Personal history of nicotine dependence; Z79.84 Long term (current) use of oral hypoglycemic drugs
CPT/HCPCS: 36415; 36416; 71045; 78452; 80048; 80053; 82553; 83880; 84484; 85025; 87635; 93005; 93010; 93017; 96361; 96365; 96372; 96375; A9500; G0378; J1650; J2785; J2930; J3475; J7512; U0003